=== PATIENT | female | born 1985 | race Caucasian/White ===

== ENCOUNTER 2020-03-31 03:47 | Emergency (ER) | payer SELFPAY ==
[~2020-03-31 03:47] MED LIST: ADVIL200 MG PO; FLOMAX 0.4 MG0.4 MG PO; NORCO 5-325 TA1 EACH PO
[2020-03-31 07:13] LABS: BUN/CREATININE RATIO 19 (0-10)
[2020-03-31 07:28] LABS: RED BLOOD COUNT 3.74 M/UL (4.00-5.10); WHITE BLOOD COUNT 14.1 K/UL (4.5-11.0)
[2020-03-31 07:29] LABS: HEMOGLOBIN 11.2 gm/dl (12.3-15.3)
[2020-03-31] MEDS ORDERED: IBUPROFEN600 MG PO (07:57)
[2020-03-31] MEDS ORDERED: NORCO 5-325 TA1 EACH PO (07:57)
[2020-03-31] MEDS ORDERED: OMNICEF 300 MG300 MG PO (07:57)
[2020-03-31] MEDS ORDERED: ZOFRAN ODT 4 MG4 MG PO (07:57)
== END 2020-03-31 08:24 | disposition home or self-care (01) ==
LOC: ER1 03:47
PROVIDERS: Emergency Medicine
DX: N13.2 Hydronephrosis with renal and ureteral calculous obstruction (principal)
CPT/HCPCS: 80053; 81001; 82270; 83690; 84703; 85025; 86850; 86900; 86901; 96365; 96375; 99284; J0696; J2270; J2405

== ENCOUNTER 2020-08-10 07:17 | Emergency (ER) | payer MEDICAID ==
[~2020-08-10 07:17] MED LIST changes: +IBUPROFEN600 MG PO; +OMNICEF 300 MG300 MG PO; +ZOFRAN ODT 4 MG4 MG PO
[2020-08-10 08:03] LABS: HEMOGLOBIN 13.7 gm/dl (12.3-15.3); RED BLOOD COUNT 4.43 M/UL (4.00-5.10); WHITE BLOOD COUNT 10.5 K/UL (4.5-11.0)
[2020-08-10 08:29] LABS: BUN/CREATININE RATIO 16 (0-10)
[2020-08-10] MEDS ORDERED: HYDROCODON-ACE1 EAC3 PO (09:12)
[2020-08-10] MEDS ORDERED: IBUPROFEN800 MG PO (09:12)
[2020-08-10] MEDS ORDERED: ZOFRAN ODT 4 MG4 MG PO (09:12)
[2020-08-10] MEDS ORDERED: FLOMAX 0.4 MG0.4 MG PO (09:12)
== END 2020-08-10 10:45 | disposition home or self-care (01) ==
LOC: ER1 07:17
PROVIDERS: Emergency Medicine
DX: N13.2 Hydronephrosis with renal and ureteral calculous obstruction (principal)
CPT/HCPCS: 71045; 80053; 81001; 82550; 82553; 84484; 84703; 85025; 93005; 96374; 96375; 99284; J1885; J2405

== ENCOUNTER 2020-10-10 07:42 | Emergency (ER) | payer SELFPAY ==
[~2020-10-10 07:42] MED LIST changes: +HYDROCODON-ACE1 EAC3 PO; +IBUPROFEN800 MG PO
[2020-10-10 08:43] LABS: HEMOGLOBIN 13.2 gm/dl (12.3-15.3); RED BLOOD COUNT 4.22 M/UL (4.00-5.10); WHITE BLOOD COUNT 12.1 K/UL (4.5-11.0)
[2020-10-10] MEDS ORDERED: OMNICEF 300 MG300 MG PO (12:48)
[2020-10-10] MEDS ORDERED: HYDROCODON-ACE1 EAC4 PO (12:48)
[2020-10-11 07:48] LABS: ACINETOBACTER BAUMANNII Not Detected (Negative); CANDIDA ALBICANS Not Detected (Negative); CANDIDA KRUSEI Not Detected (Negative); CANDIDA TROPICALIS Not Detected (Negative); ENTEROCOCCUS Not Detected (Negative); ESCHERICHIA COLI Not Detected (Negative); HAEMOPHILUS INFLUENZAE Not Detected (Negative); KLEBSIELLA OXYTOCA Not Detected (Negative); KLEBSIELLA PNEUMONIAE Not Detected (Negative); KPC-CARBAPENEM-RESISTANCE GENE Not Detected (Negative); PROTEUS Not Detected (Negative); PSEUDOMONAS AERUGINOSA Not Detected (Negative); SERRATIA MARCESANS Not Detected (Negative); STAPHYLOCOCCUS AUREUS Not Detected (Negative); STREP AGALACTIAE (GROUP B) Not Detected (Negative); STREP PYOGENES (GROUP A) Not Detected (Negative); STREPTOCOCCUS Not Detected (Negative); vanA/B (VANCOMYCIN RESIST GENE Not Detected (Negative)
[2020-10-11 12:49] LABS: STAPHYLOCOCCUS DETECTED (Negative); mecA (METHICILLIN RESIST GENE DETECTED (Negative)
== END 2020-10-10 13:10 | disposition home or self-care (01) ==
LOC: ER1 07:42
PROVIDERS: Emergency Medicine
DX: N20.1 Calculus of ureter (principal); E87.6 Hypokalemia
CPT/HCPCS: 80053; 81001; 84703; 85025; 87040; 87077; 87086; 87150; 87186; 96374; 96375; 99284; J0696; J1885; J2270; J2405

== ENCOUNTER 2020-11-30 03:47 | Emergency (ER) | payer SELFPAY ==
[~2020-11-30 03:47] MED LIST changes: +HYDROCODON-ACE1 EAC4 PO
[2020-11-30] MEDS ORDERED: PERCOCET 5/325 T1 EA PO ×2 (04:16→06:31)
[2020-11-30 04:52] LABS: HEMOGLOBIN 14.9 gm/dl (12.3-15.3); RED BLOOD COUNT 4.88 M/UL (4.00-5.10)
[2020-11-30 05:11] LABS: BUN/CREATININE RATIO 17 (0-10)
[2020-11-30] MEDS ORDERED: TORADOL 10 MG T10 MG PO (06:31)
== END 2020-11-30 06:42 | disposition home or self-care (01) ==
LOC: ER1 03:47
PROVIDERS: Family Medicine
DX: N20.2 Calculus of kidney with calculus of ureter (principal); Z90.49 Acquired absence of other specified parts of digestive tract
CPT/HCPCS: 74018; 80053; 83690; 84703; 85025; 96374; 96375; 99284; J1885; J2405